=== PATIENT | male | born 1985 | race Caucasian/White ===

== ENCOUNTER 2018-07-10 08:16 | Emergency (ER) | payer SELFPAY ==
[~2018-07-10] VITALS: Ht 170.2 cm; Wt 63.5 kg
[~2018-07-10 08:16] MED LIST: ACETAMINOPHEN-1 EAC1 PO; FLEXERIL PO; HYDROCODONE-AP1 EAC6 PO; IBUPROFEN 600600 M1 PO; IBUPROFEN 800800 M1 PO; IBUPROFEN 800800 MG PO; NAPROSYN500 MG PO; NOHOMEMEDICATIONS; NORCO 5-325 TA1 EAC1 PO; NORCO 5-325 TA1 EACH PO; TRAMADOL 50 MG50 MG PO; ULTRAM 50MG TAB50 MG PO; ULTRAM50 MG PO
[2018-07-10] MEDS ORDERED: NORCO 5-325 TA1 EACH PO (10:04)
[2018-07-10 10:31] VITALS: BP 112/64
== END 2018-07-10 10:33 | disposition home or self-care (01) ==
LOC: M.ERS 08:16
DX: S52.091A Other fracture of upper end of right ulna, initial encounter for closed fracture (principal); S92.492A Other fracture of left great toe, initial encounter for closed fracture; F17.210 Nicotine dependence, cigarettes, uncomplicated; V19.49XA Pedal cycle driver injured in collision with other motor vehicles in traffic accident, initial encounter; Y93.89 Activity, other specified; Y92.89 Other specified places as the place of occurrence of the external cause; Y99.8 Other external cause status

== ENCOUNTER 2021-03-18 10:18 | Emergency (ER) | payer OTHER ==
[~2021-03-18] VITALS: Ht 170.2 cm; Wt 63.5 kg
[2021-03-18] MEDS ORDERED: NORCO5 PO ×3 (10:31→11:09)
[2021-03-18] MEDS ORDERED: PENICILLIN VK500 MG PO (10:31)
[2021-03-18 10:35] VITALS: BP 143/99
[2021-03-18] MEDS ORDERED: PENICILLIN VK500 M1 PO (10:59)
== END 2021-03-18 10:36 | disposition home or self-care (01) ==
LOC: M.ERS 10:18
DX: K04.7 Periapical abscess without sinus (principal); K02.9 Dental caries, unspecified; F17.210 Nicotine dependence, cigarettes, uncomplicated

== ENCOUNTER 2021-05-07 23:49 | Emergency (ER) | payer OTHER ==
[~2021-05-07] VITALS: Ht 170.2 cm; Wt 63.5 kg
[~2021-05-07 23:49] MED LIST changes: +NORCO5 PO; +PENICILLIN VK500 M1 PO; +PENICILLIN VK500 MG PO
[2021-05-08] MEDS ORDERED: HYDROCODON-ACE1 EAC8 PO (00:43)
[2021-05-08] MEDS ORDERED: AMOXICILLIN 50500 M1 PO (00:43)
[2021-05-08 01:20] VITALS: BP 171/106
== END 2021-05-08 01:20 | disposition home or self-care (01) ==
LOC: M.ERS 23:49
DX: K02.9 Dental caries, unspecified (principal); F17.210 Nicotine dependence, cigarettes, uncomplicated